=== PATIENT | male | born 1965 | race Caucasian/White ===

== ENCOUNTER 2020-10-23 09:32 | Emergency (ER) | payer MEDICAID ==
[~2020-10-23] VITALS: Ht 170.2 cm; Wt 98.9 kg
[2020-10-23 09:46] VITALS: BP 161/106
--- NOTE | 2020-10-23 09:55 | NUR ---
Pt ambulated to ER bed 6 with a steady gait.
--- NOTE | 2020-10-23 10:10 | NUR ---
54 Y/O MALE C/O MOUTH DISCOMFORT DESCRIBES DULL STATES "NUMBNESS" X1DAY WITH DRYNESS AND INTERMITTENT DIZZINESS. DENIES SMOKING, DRINKING OR DRUG USE. DENIES N/V, DENIES FEVER/CHILLS. PMH: HTN, DM, ANXIETY NKA
--- NOTE | 2020-10-23 10:42 | NUR ---
Dr. Mcgowan is evaluating the patient at bedside.
--- NOTE | 2020-10-23 10:58 | NUR ---
rvda master certified rv technician at bedside.
[2020-10-23 11:07] LABS: BASOPHILS % (AUTO) 0.6 % (0.0-2.0); EOSINOPHILS # (AUTO) 0.3 K/uL (0-0.4); EOSINOPHILS % (AUTO) 3.8 % (0.0-4.0); HEMATOCRIT 37.9 % (36-52); HEMOGLOBIN 12.7 g/dL (12.0-18.0); LYMPHOCYTES # (AUTO) 1.3 K/uL (2.0-11.5); LYMPHOCYTES % (AUTO) 18.7 % (20.5-51.1); MEAN CORPUSCULAR HEMOGLOBIN 28 pg (27-31); MEAN CORPUSCULAR HGB CONC 34 g/dL (33-37); MEAN CORPUSCULAR VOLUME 82.4 fL (80-94); MONOCYTES # (AUTO) 0.5 K/uL (0.8-1.0); NEUTROPHILS # (AUTO) 4.7 K/uL (1.8-7.7); NEUTROPHILS % (AUTO) 68.9 % (42.2-75.2); PLATELET COUNT (AUTO) 241 K/uL (140-450); RED BLOOD CELL COUNT(AUTO) 4.59 MIL/uL (4.20-6.10); RED CELL DISTRIBUTION WIDTH 13.2 % (11.6-13.7); WHITE BLOOD COUNT (AUTO) 6.8 K/uL (4.8-10.8)
[2020-10-23 11:18] LABS: PROTHROMBIN TIME 9.3 secs (10.8-13.4)
[2020-10-23 11:21] LABS: ALBUMIN 3.8 g/dL (3.4-5.0); ANION GAP 10.9 (8-16); CARBON DIOXIDE 25.6 mmol/L (21-32); CREATININE 0.8 mg/dL (0.6-1.3); POTASSIUM 3.5 mmol/L (3.5-5.1); TOTAL BILIRUBIN 0.2 mg/dL (0.0-1.0)
--- NOTE | 2020-10-23 12:26 | NUR ---
Pt resting, VSS, will continue to monitor.
[2020-10-23] MEDS ORDERED: [UNRECOGNIZED DRUG - CODE] PO ×2 (13:06)
[2020-10-23 13:21] VITALS: BP 161/106
--- NOTE | 2020-10-23 13:25 | NUR ---
Patient discharged with v/s stable. Written and verbal after care instructions given panic attack, dehydration, and chest pain observation and explained. Patient alert, oriented and verbalized understanding of instructions. Ambulatory with steady gait. All questions addressed prior to discharge. ID band removed. Patient advised to follow up with PMD. Rx of biotene misturizing mouth po tid given. Patient educated on indication of medication including possible reaction and side effects. Opportunity to ask questions provided and answered.
== END 2020-10-23 13:25 | disposition home or self-care (01) ==
LOC: MED 09:32
DX: F41.9 Anxiety disorder, unspecified (principal); R68.2 Dry mouth, unspecified; R07.9 Chest pain, unspecified; E11.9 Type 2 diabetes mellitus without complications; I10 Essential (primary) hypertension; Z79.899 Other long term (current) drug therapy
CPT/HCPCS: 36415; 71045; 80053; 81002; 83880; 84484; 85025; 85610; 85730; 93005; 99285